=== PATIENT | female | born 1960 ===

== ENCOUNTER 2016-11-19 14:32 | Emergency (ER) | payer OTHER, MEDICARE ==
[2016-06-30 17:09] VITALS: BMI 22.4
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
== END 2016-11-19 18:40 | disposition home or self-care (01) ==
LOC: C.ER 14:32
DX: S16.1XXA Strain of muscle, fascia and tendon at neck level, initial encounter (principal); V49.40XA Driver injured in collision with unspecified motor vehicles in traffic accident, initial encounter; M54.5 Low back pain; M25.512 Pain in left shoulder
CPT/HCPCS: 72100; 73030; 96372; 99281; J1885

== ENCOUNTER 2017-10-28 06:29 | Day surgery (SDC) | payer MEDICARE, OTHER ==
[2017-05-02 15:55] VITALS: BMI 25.0
[2017-10-28] MEDS ORDERED: Propofol 10 mg/ml Inj (20 ML) ONE (07:52)
[2017-10-28 08:58] VITALS: TEMP 97.3
[2017-10-28 09:52] VITALS: RESP 13; O2SAT 100
[2017-10-28 09:54] VITALS: BP 125/54; PULSE 58
== END 2017-10-28 09:40 | disposition home or self-care (01) ==
LOC: C.ENDO 06:29
PROVIDERS: ATTEND Internal Medicine Gastroenterology
DX: K29.00 Acute gastritis without bleeding (principal); Z12.11 Encounter for screening for malignant neoplasm of colon; K29.50 Unspecified chronic gastritis without bleeding; D12.2 Benign neoplasm of ascending colon; K64.1 Second degree hemorrhoids
CPT/HCPCS: 43239; 45380; 88305; J2704